=== PATIENT | male | born 2000 | race Caucasian/White ===

== ENCOUNTER → 2024-04-21 | Outpatient (CLI) | payer OTHER ==
[~2024-04-21] MED LIST: LIDOCAINE 1% MDV 20ML VIAL As Ordered ONE
[2024-04-21 08:15] VITALS: TEMP 98.1
[2024-04-21 08:46] LABS: BASO % 0.3 % (0.0-1.0); EOS # 0.1 10^3/uL (0.0-0.5); EOS % 1.9 % (0.0-3.0); HEMOGLOBIN 11.5 g/dl (13.5-17.5); LYMPH # 1.5 10^3/uL (1.5-5.0); LYMPH % 47.1 % (24.0-44.0); MEAN CORPUSCULAR HEMOGLOBIN 33.1 pg (27.0-33.0); MEAN CORPUSCULAR HGB CONC 34.8 g/dl (32.0-36.5); MEAN CORPUSCULAR VOLUME 95.1 fl (80.0-96.0); MONO # 0.3 10^3/uL (0.0-0.8); MONO % 9.9 % (2.0-8.0); NEUTROPHILS # 1.3 10^3/uL (1.5-8.5); NEUTROPHILS % 40.8 % (36.0-66.0); RED BLOOD COUNT 3.47 10^6/uL (4.30-6.10); WHITE BLOOD COUNT 3.1 10^3/uL (4.0-10.0)
[2024-04-21 08:48] LABS: PLATELET COUNT, AUTOMATED 31 10^3/uL (150-450)
[2024-04-21 12:25] VITALS: BP 129/64; O2SAT 100
== END ==
LOC: M IRPRO 08:05
PROVIDERS: ATTEND Internal Medicine Medical Oncology
DX: R16.1 Splenomegaly, not elsewhere classified (principal)

== ENCOUNTER → 2024-06-09 | Outpatient (CLI) | payer OTHER ==
[~2024-06-09] MED LIST changes: +AZAT50TA37; +GASTROGRAFIN SOLUTION 30ML As Ordered ONE; +ISOVUE-370 76% 100ML VIAL As Ordered ONE; -LIDOCAINE 1% MDV 20ML VIAL As Ordered ONE; +PRED10TA2
== END ==
LOC: M RAD 12:15
PROVIDERS: ATTEND Internal Medicine Medical Oncology
DX: R16.1 Splenomegaly, not elsewhere classified (principal)

== ENCOUNTER 2024-07-26 01:49 | Emergency (ER) | payer OTHER ==
[~2024-07-26] VITALS: Ht 170.2 cm; Wt 69.3 kg
[~2024-07-26 01:49] MED LIST changes: -GASTROGRAFIN SOLUTION 30ML As Ordered ONE; -ISOVUE-370 76% 100ML VIAL As Ordered ONE
[2024-07-26 02:55] LABS: BASO % 0.6 % (0.0-1.0); EOS # 0.1 10^3/uL (0.0-0.5); EOS % 1.7 % (0.0-3.0); HEMATOCRIT 34.9 % (42.0-52.0); HEMOGLOBIN 12.2 g/dl (13.5-17.5); LYMPH # 0.8 10^3/uL (1.5-5.0); MEAN CORPUSCULAR HEMOGLOBIN 34.9 pg (27.0-33.0); MEAN CORPUSCULAR VOLUME 99.7 fl (80.0-96.0); MONO # 0.3 10^3/uL (0.0-0.8); MONO % 7.3 % (2.0-8.0); NEUTROPHILS # 2.4 10^3/uL (1.5-8.5); NEUTROPHILS % 67.1 % (36.0-66.0); WHITE BLOOD COUNT 3.6 10^3/uL (4.0-10.0)
[2024-07-26 03:10] LABS: INR 1.52; PARTIAL THROMBOPLASTIN TIME 38.8 SECONDS (24.8-34.2); PROTHROMBIN TIME 18.6 SECONDS (12.5-14.5)
[2024-07-26 03:16] LABS: LIPASE 62 U/L (12-53)
[2024-07-26 03:19] LABS: ALKALINE PHOSPHATASE 217 U/L (40-129); ALT/SGPT 256 U/L (7.0-40); AST/SGOT 209 U/L (<34); BILIRUBIN,DIRECT 1.5 MG/DL (<0.4); BLOOD UREA NITROGEN 14 MG/DL (9-23); CALCIUM LEVEL 8.4 MG/DL (8.5-10.1); CARBON DIOXIDE LEVEL 23 MMOL/L (20-31); CHLORIDE LEVEL 110 MMOL/L (98-107); CREATININE FOR GFR 0.76 MG/DL (0.70-1.30); GLOMERULAR FILTRATION RATE > 60.0 (>60); GLUCOSE, FASTING 131 MG/DL (60-100); POTASSIUM SERUM 3.6 MMOL/L (3.5-5.1); SODIUM LEVEL 140 MMOL/L (136-145)
[2024-07-26 03:22] LABS: PLATELET COUNT, AUTOMATED 44 10^3/uL (150-450)
[2024-07-26] MEDS: ONDANSETRON 4MG 2ML VIAL IV ONE (05:30)
[2024-07-26] MEDS: KETOROLAC 30 MG/ML 1ML VIAL IV ONE (05:30)
[2024-07-26] MEDS: NS 1,000 ML IV ONE (05:30)
[2024-07-26] MEDS ORDERED: ISOVUE-370 76% 100ML VIAL As Ordered ONE (05:43)
[2024-07-26 06:21] LABS: MONO SCRN NEGATIVE (NEGATIVE)
[2024-07-26] MEDS ORDERED: ONDA-282 PO (08:27)
[2024-07-26 08:36] VITALS: BP 123/60; TEMP 97.8; O2SAT 99
== END 2024-07-26 08:38 | disposition home or self-care (01) ==
LOC: M ED 01:49
DX: K75.4 Autoimmune hepatitis (principal); D61.818 Other pancytopenia; R11.10 Vomiting, unspecified; Z79.52 Long term (current) use of systemic steroids; Z79.899 Other long term (current) drug therapy
CPT/HCPCS: 74177; 76705; 80048; 80076; 83605; 83690; 85025; 85049; 85055; 85610; 85730; 86308; 87040; 93041; 96374; 99284; J1885; J2405; Q9967